=== PATIENT | male | born 1995 | race Caucasian/White ===

== ENCOUNTER 2017-04-22 14:11 | Emergency (ER) | payer MEDICAID, OTHER ==
[~2017-04-22] VITALS: Ht 170.2 cm; Wt 56.8 kg
[~2017-04-22 14:11] MED LIST: NOCURR
[2017-04-22] MEDS ORDERED: FLUORESCEIN SODIUM 1 MG STRIP OS ONE (15:15)
[2017-04-22] MEDS ORDERED: PROPARACAINE HCL 0.5% 15 ML OPHTHALMIC SOLUTION OS ONE (15:15)
[2017-04-22 16:19] VITALS: BP 100/53
== END 2017-04-22 16:27 | disposition home or self-care (01) ==
LOC: EMS 14:12
DX: S00.12XA Contusion of left eyelid and periocular area, initial encounter (principal); Z90.49 Acquired absence of other specified parts of digestive tract; W22.8XXA Striking against or struck by other objects, initial encounter; Y93.89 Activity, other specified; Y92.9 Unspecified place or not applicable; Y99.9 Unspecified external cause status
CPT/HCPCS: 99283

== ENCOUNTER 2020-07-27 23:38 | Emergency (ER) | payer MEDICAID ==
[~2020-07-27] VITALS: Ht 167.6 cm; Wt 65.9 kg
[2020-07-28] MEDS ORDERED: IBUPROFEN 400 MG TABLET PO ONE
[2020-07-28 02:55] VITALS: BP 111/68
== END 2020-07-28 02:55 | disposition home or self-care (01) ==
LOC: EMS 23:38
DX: S00.83XA Contusion of other part of head, initial encounter (principal); S10.93XA Contusion of unspecified part of neck, initial encounter; X58.XXXA Exposure to other specified factors, initial encounter; Y93.89 Activity, other specified; Y92.89 Other specified places as the place of occurrence of the external cause; Y99.8 Other external cause status
CPT/HCPCS: 70360; 73130-TC; Z7502; Z7610

== ENCOUNTER 2025-02-02 12:22 | Inpatient (IN) | payer MEDICAID, OTHER ==
[~2025-02-02] VITALS: Ht 170.2 cm; Wt 52.0 kg
[2025-02-02 12:59] LABS: COVID AG,FIA SOURCE NASAL SWAB
[2025-02-02 12:59] LABS: HEMATOCRIT 43.3 % (41-53); HEMOGLOBIN 14.3 g/dL (13.5-17.5); MEAN CORPUSCULAR HEMOGLOBIN 28.9 pg (26.0-34.0); MEAN CORPUSCULAR HGB CONC 32.9 G/dL (31.0-37.0); MEAN CORPUSCULAR VOLUME 88 fL (80-100); PLATELET COUNT (AUTO) 431 K/uL (150-450); RED BLOOD CELL COUNT(AUTO) 4.94 MIL/uL (4.50-5.90); RED CELL DISTRIBUTION WIDTH 14.1 % (11.5-14.5); WHITE BLOOD COUNT (AUTO) 10.9 K/uL (4.5-11.0)
[2025-02-02 13:09] LABS: APPEARANCE,URINE CLEAR (CLEAR); BILIRUBIN,URINE NEGATIVE (NEGATIVE); COLOR,URINE YELLOW (YELLOW); GLUCOSE, URINE (UA) NEGATIVE (NEGATIVE); KETONES,URINE NEGATIVE (NEGATIVE); LEUKOCYTE ESTERASE ,URINE NEGATIVE (NEGATIVE); NITRATE,URINE NEGATIVE (NEGATIVE); OCCULT BLOOD,URINE NEGATIVE (NEGATIVE); PH,URINE 6.5 (5.0-8.0); PROTEIN,URINE TRACE mg/dL (NEGATIVE); SPECIFIC GRAVITIY, URINE 1.025 (1.003-1.030)
[2025-02-02 13:10] LABS: ANION GAP 6 mmol/L (8-16); CALCIUM, TOTAL 8.9 mg/dL (8.8-10.5); CARBON DIOXIDE 31 mmol/L (22-29); CHLORIDE 97 mmol/L (98-107); CREATININE 0.77 mg/dL (0.60-1.30); GLOMERULAR FILTR. RATE CALC > 60 mL/min (>60); GLUCOSE,RANDOM 65 mg/dL (70-110); LIPASE 69 U/L (16-77); SODIUM SERUM 134 mmol/L (136-145); UREA NITROGEN, BLOOD 10 mg/dL (7-18)
[2025-02-02 13:17] LABS: SARS-COV2 (COVID) ANTIGEN,FIA Negative (Negative)
[2025-02-02 13:18] LABS: INFLUENZA TYPE A NEGATIVE FOR TYPE A (NEGATIVE); INFLUENZA TYPE B NEGATIVE FOR TYPE B (NEGATIVE)
[2025-02-02 13:33] LABS: BAND NEUTROPHILS % (MANUAL) 22 % (0-5); BASOPHILS % (MANUAL) 1 % (0-2); LYMPHOCYTES % (MANUAL) 17 % (22-44); MONOCYTES % (MANUAL) 17 % (2-9); SEGMENTED NEUTROPHILS % 43 % (40-70); TOTAL CELLS COUNTED 100
[2025-02-02 13:34] LABS: RBC MORPHOLOGY COMMENT NORMAL RBC MORPH
[2025-02-02] MEDS ORDERED: 0.9% SODIUM CHLORIDE 10 ML SYRINGE IVP ONE (15:22)
[2025-02-02] MEDS: DIPHENOXYLATE/ATROP 2.5-0.025 MG TABLET PO ONE (15:22)
[2025-02-02] MEDS ORDERED: IOHEXOL 350 MG/ML 100 ML VIAL ONE (15:22)
[2025-02-02] MEDS ORDERED: SODIUM CHLORIDE 0.9% 100 ML ONE (15:22)
[2025-02-02] MEDS: ONDANSETRON HCL 4 MG/2 ML VIAL IVP ONE (15:22)
[2025-02-02] MEDS: SODIUM CHLORIDE 0.9% 2,000 ML IV ONE (15:22)
[2025-02-02] MEDS: ACETAMINOPHEN 500 MG TABLET PO ONE (15:23)
[2025-02-02] MEDS: IOHEXOL 9 MG/ML 500 ML BOTTLE PO ONE (15:37)
[2025-02-02] MEDS ORDERED: ONDANSETRON HCL 4 MG/2 ML VIAL IVP PRN (19:45)
[2025-02-02 20:16] LABS: THYROID STIMULATING HORMONE 1.49 uIU/mL (0.36-3.74)
[2025-02-02] MEDS: MIDAZOLAM HCL 5 MG/ML VIAL IVP ONE (20:33)
[2025-02-02] MEDS: DEXTROSE 5%-0.45% SODIUM CHL 1,000 ML IV SCH (20:33)
[2025-02-02] MEDS: SODIUM CHLORIDE 0.9% 1,000 ML IV ONE (20:34)
[2025-02-02 21:30] VITALS: O2SAT 98
[2025-02-03] VITALS: BP 106/64; PULSE 86; RESP 18; TEMP 98.6; O2SAT 100
[2025-02-03 06:33] VITALS: BP 102/61; PULSE 78; RESP 18; TEMP 99.1; O2SAT 99
[2025-02-03 08:31] VITALS: BP 102/60; PULSE 87; RESP 18; TEMP 98.2; O2SAT 100
[2025-02-03] MEDS: PANTOPRAZOLE SODIUM 40 MG/VIAL IVP SCH (08:39)
[2025-02-03] MEDS: MORPHINE SULFATE 2 MG/ML SYRINGE IVP PRN (08:42)
[2025-02-03] MEDS: DOCUSATE SODIUM 100 MG CAPSULE PO SCH (08:45)
[2025-02-03 17:35] VITALS: BP 102/64; PULSE 83; RESP 18; TEMP 98.7; O2SAT 100
[2025-02-03 20:35] VITALS: BP 104/57; PULSE 69; RESP 18; TEMP 98.2; O2SAT 100
[2025-02-03] MEDS: ACETAMINOPHEN 325 MG TABLET PO PRN (20:40)
[2025-02-04 05:21] VITALS: BP 98/54; PULSE 73; RESP 18; TEMP 98.1; O2SAT 100
[2025-02-04 08:55] VITALS: BP 100/52; PULSE 69; RESP 16; TEMP 98.1; TEMP 99.9; O2SAT 99
[2025-02-04] MEDS ORDERED: BISA10SU11 PR (13:16)
[2025-02-04 16:20] VITALS: BP 100/54; PULSE 69; RESP 18; TEMP 98; O2SAT 100
== END 2025-02-04 15:50 | disposition home or self-care (01) | DRG 249 ==
LOC: EMS 12:24 → EDH 19:38 → 4E 02-03 00:26
PROVIDERS: ADMIT Internal Medicine; ATTEND Internal Medicine
DX: K52.9 Noninfective gastroenteritis and colitis, unspecified (principal); K56.609 Unspecified intestinal obstruction, unspecified as to partial versus complete obstruction; F15.90 Other stimulant use, unspecified, uncomplicated; F17.210 Nicotine dependence, cigarettes, uncomplicated; H54.62 Unqualified visual loss, left eye, normal vision right eye; K59.00 Constipation, unspecified; Z20.822 Contact with and (suspected) exposure to COVID-19; Z90.49 Acquired absence of other specified parts of digestive tract
CPT/HCPCS: 71045; 74022; 74177; 80048; 81003; 83690; 84443; 85025; 87804; 99152; 99285; G0378; J2250; J2270; J2405; J2470; J7030; J7050; 36415-L1; 36415-TC